=== PATIENT | female | born 2000 ===

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

== ENCOUNTER 2018-07-02 08:09 | Emergency (ER) | payer MEDICAID, OTHER ==
[2018-07-02 08:09] VITALS: BMI 25.8
[2018-07-02 08:31] VITALS: RESP 18
[2018-07-02] MEDS ORDERED: Sodium Chloride 0.9% 1,000 ML IV STA (08:45)
--- NOTE | 2018-07-02 08:49 | ED PDOC ---
Arrival/HPI - General Chief Complaint: Abdominal Pain Time Seen by Provider: 07/02/18 08:11 Historian: Patient - History of Present Illness Narrative History of Present Illness (Text): 07/02/18 08:48 18 year old female who denies any medical history issues, and who presents to the Emergency department for intermittent lower abdominal cramps since yesterday. Patient is primarily [place] speaking. She reports that her menstrual cycle started 6 days ago and and admits to vaginal bleeding which is consistent with menstrual cycle. She notes that she doesn't typically experience abdominal pain during her menstruation which is what prompted her presentation to the department. Patient states that her lower abdominal cramps occasionally feel like epigastric discomfort. She also admits to experiencing vomiting and has had 10 episodes of diarrhea. Had a fever around 2am this morning which was alleviated with Tylenol. Patient denies chills, cough, shortness of breath, chest pain, dyspnea on exertion, urinary symptoms, back pain, neck pain, headache, dizziness, or any other complaint. PMD: Patient doesn't currently have one. Time/Duration: 24 hours (since yesterday) Symptom Onset: Sudden Symptom Course: Unchanged Quality: Cramping Context: Home Past Medical History - Provider Review Nursing Documentation Reviewed: Yes - Past History Past History: No Previous - Infectious Disease Hx of Infectious Diseases: None - Tetanus Immunization Tetanus Immunization: Unknown - Past Medical History Past Medical History: No Previous - Psychiatric Hx Depression: No Hx Emotional Abuse: No Hx Physical Abuse: No Hx Substance Use: No - Past Surgical History Past Surgical History: No Previous - Anesthesia Hx Anesthesia: No Hx Anesthesia Reactions: No Hx Malignant Hyperthermia: No - Suicidal Assessment Feels Threatened In Home Enviroment: No Family/Social History - Physician Review Nursing Documentation Reviewed: Yes Family/Social History: No Known Family HX Smoking Status: Never Smoked Hx Alcohol Use: No Hx Substance Use: No Hx Substance Use Treatment: No Allergies/Home Meds Allergies/Adverse Reactions: Allergies decadron Allergy (Uncoded 01/02/17 23:51) RASH Review of Systems - Physician Review All systems were reviewed & negative as marked: Yes - Review of Systems Constitutional: Fevers. absent: Other (chills) Respiratory: absent: SOB, Cough Cardiovascular: absent: Chest Pain, JARRETT Gastrointestinal: Abdominal Pain, Diarrhea, Vomiting Genitourinary Female: absent: Urine Output Changes Musculoskeletal: absent: Back Pain, Neck Pain Neurological: absent: Headache, Dizziness Physical Exam Vital Signs Reviewed: Yes Vital Signs Temp Pulse Resp BP Pulse Ox 07/02/18 08:25 99.1 F 115 H 18 127/89 98 Temperature: Afebrile Blood Pressure: Normal Pulse: Tachycardic Respiratory Rate: Normal Appearance: Positive for: Well-Appearing Mental Status: Positive for: Alert and Oriented X 3 - Systems Exam Head: Present: Atraumatic, Normocephalic Pupils: Present: PERRL Extroacular Muscles: Present: EOMI Conjunctiva: Present: Normal Mouth: Present: Moist Mucous Membranes Neck: Present: Normal Range of Motion Respiratory/Chest: Present: Clear to Auscultation, Good Air Exchange. No: Respiratory Distress, Accessory Muscle Use Cardiovascular: Present: Regular Rate and Rhythm, Normal S1, S2. No: Murmurs Abdomen: No: Tenderness, Distention, Peritoneal Signs Genitourinary/Pelvic Exam: Present: Normal External Genitalia, Vaginal Bleeding (mild bleeding), Cervical os Closed. No: Vaginal Discharge, Vaginal Lesions, Adenexal Tenderness, Adenexal Mass, Cervical Motion Tendernes Back: Present: Normal Inspection Upper Extremity: Present: Normal Inspection. No: Cyanosis, Edema Lower Extremity: Present: Normal Inspection. No: Edema Neurological: Present: GCS=15, CN II-XII Intact, Speech Normal Skin: Present: Warm, Dry, Normal Color. No: Rashes Psychiatric: Present: Alert, Oriented x 3, Normal Insight, Normal Concentration Medical Decision Making ED Course and Treatment: 07/02/18 08:49 Impression: 18 year old female complaining of lower abdominal cramping and has experienced episodes of diarrhea since yesterday. Differential Diagnosis included but are not limited to: Gastroenteritis vs. menstrual cramps. Plan: -- Pepcid -- Zofran -- IV fluids -- Urine culture -- Reassess and disposition Prior Visits: Notes and results from previous visits were reviewed. Progress Notes: 07/02/18 11:32 Patient received meds in the ED and felt much better. She is able to walk with no lightheadedness or dizziness. On reexamination abdomen is non tender. Urine shows UTI and yeast. Will treat for both of those infection. Patient stable for discharge. - Lab Interpretations I have reviewed the lab results: Yes - Scribe Statement The provider has reviewed the documentation as recorded by the Alfonsoibe Franco Emir Provider Scribe Attestation: All medical record entries made by the Scribe were at my direction and personally dictated by me. I have reviewed the chart and agree that the record accurately reflects my personal performance of the history, physical exam, medical decision making, and the department course for this patient. I have also personally directed, reviewed, and agree with the discharge instructions and d isposition. Disposition/Present on Arrival - Present on Arrival Any Indicators Present on Arrival: No History of DVT/PE: No History of Uncontrolled Diabetes: No Urinary Catheter: No History of Decub. Ulcer: No History Surgical Site Infection Following: None - Disposition Have Diagnosis and Disposition been Completed?: Yes Diagnosis: Gastroenteritis, Menstrual cramps Disposition: HOME/ ROUTINE Disposition Time: 11:32 Condition: IMPROVED Discharge Instructions (ExitCare): Menstrual Cramps (DC), Gastroenteritis (ED) Additional Instructions: CLARISSE ESQUEDA, thank you for letting us take care of you today. Your provider was Atilio Mena DO and you were treated for Gastroenteritis, Menstral Cramps. The emergency medical care you received today was directed at your acute symptoms. If you were prescribed any medication, please fill it and take as directed. It may take several days for your symptoms to resolve. Return to the Emergency Department if your symptoms worsen, do not improve, or if you have any other problems. Please contact your doctor or call one of the physicians/clinics you have been referred to that are listed on the Patient Visit Information form that is included in your discharge packet. Bring any paperwork you were given at discharge with you along with any medications you are taking to your follow up visit. Our treatment cannot replace ongoing medical care by a primary care provider outside of the emergency department. Thank you for allowing the [facility] team to be part of your care today. If you had an X-Ray or CT scan: A Radiologist will review the ED reading if any change in treatment is needed we will contact you. If you had a blood, urine, or wound culture: It will take several days for the results, if any change in treatment is needed we will contact you. If you had an STI test: It will take 48 hours for the results. Please call after 1 week if you have not heard back. Prescriptions: Clotrimazole 1% Vaginal [Lotrimin 1% Vaginal] 1 applic VG 10 #1 tube Nitrofurantoin Macrocrystals [Macrobid] 100 mg PO BID #9 cap Referrals: [facility] [place] - Follow up with primary Tootie Ramos MD [Medical Doctor] - Follow up with primary Forms: [employer]: [employer] (Peruvian), WORK NOTE
[2018-07-02 09:33] LABS: URINE BILIRUBIN NEGATIVE (NEGATIVE); URINE BLOOD MODERATE (NEGATIVE); URINE GLUCOSE (UA) NEGATIVE (NEGATIVE); URINE LEUKOCYTE ESTERASE TRACE Leu/uL (NEGATIVE); URINE PROTEIN 30 mg/dL (<30 mg/dL); URINE UROBILINOGEN 0.2 E.U./dL (<1 E.U./dL)
[2018-07-02 09:36] LABS: URINE APPEARANCE CLEAR (CLEAR); URINE COLOR YELLOW (YELLOW)
[2018-07-02 09:37] LABS: BASO # 0.01 K/mm3 (0.0-2.0); BASO % 0.1 % (0.0-3.0); EOS % 0.1 % (1.5-5.0); GRAN # 9.03 (1.4-6.5); GRAN % 90.3 % (50.0-68.0); HEMOGLOBIN 14.9 g/dL (12.0-16.0); LYMPH # 0.6 (1.2-3.4); LYMPH % 6.2 % (22.0-35.0); MEAN CELL VOLUME 80.8 fl (80.0-105.0); MEAN CORPUSCULAR HGB CONC 33.5 g/dl (31.0-37.0); MEAN PLATELET VOLUME 9.7 fl (7.0-11.0); MONO # 0.3 (0.1-0.6); MONO % 3.3 % (1.0-6.0); PLATELET COUNT 293 10^3/uL (120.0-450.0); RBC 5.51 10^6/uL (3.5-6.1); RED CELL DISTRIBUTION WIDTH 14.9 % (11.5-14.5)
[2018-07-02 09:40] LABS: HCG,QUALITATIVE URINE NEGATIVE (NEGATIVE)
[2018-07-02 09:46] LABS: URINE RBC 15 - 20 /hpf (0-2)
[2018-07-02 09:47] LABS: URINE BACTERIA MANY (NEG)
[2018-07-02 09:47] LABS: ALB/GLOB RATIO 1.1 (1.1-1.8); ALBUMIN 4.5 g/dL (3.0-4.8); ALT/SGPT 25 U/L (7-56); AST/SGOT 24 U/L (14-36); BLOOD UREA NITROGEN 10 mg/dL (7-21); CALCIUM 9.5 mg/dL (8.4-10.5); GFR NON-AFRICAN AMERICAN > 60; LIPASE 36 U/L (23-300)
[2018-07-02 09:51] VITALS: TEMP 98.8; O2SAT 100
[2018-07-02 10:44] LABS: LYMPHOCYTE 5 % (22.0-35.0); MONOCYTE 4 % (1.0-6.0); NEUTROPHIL 91 % (50.0-70.0); PLATELET ESTIMATE NORMAL (NORMAL)
[2018-07-02 12:08] VITALS: BP 120/73; PULSE 89
== END 2018-07-02 12:08 | disposition home or self-care (01) ==
LOC: ED 08:09
DX: K52.9 Noninfective gastroenteritis and colitis, unspecified (principal); N94.6 Dysmenorrhea, unspecified
CPT/HCPCS: 80053; 81001; 83690; 83735; 84703; 85025; 87086; 87181; 96374; 96375; 99284; J2405; J7030

== ENCOUNTER 2018-11-29 22:29 | Emergency (ER) | payer OTHER ==
[2018-11-29 22:29] VITALS: BMI 25.8
[2018-11-29] MEDS ORDERED: Sodium Chloride 0.9% 1,000 ML IV STA (22:35)
[2018-11-29] MEDS ORDERED: DiphenhydrAMINE 50 mg/ml Inj IVP STA (22:35)
[2018-11-29] MEDS ORDERED: EPINEPHrine 1 mg/ml (1:1000) Inj ONE (22:36)
[2018-11-29] MEDS ORDERED: EPINEPHrine 1 mg/ml (1:1000) Inj IM STA (22:36)
--- NOTE | 2018-11-29 22:47 | ED PDOC ---
Arrival/HPI - General Chief Complaint: Allergic Reaction Time Seen by Provider: 11/29/18 22:43 Historian: Patient - History of Present Illness Narrative History of Present Illness (Text): 11/29/18 22:44 18 year old female, with no significant past medical history, presents to the emergency department with allergic reaction. Patient states she ate crab and immediately began having hives. Patient states she felt her throat c losing. Patient states she feels itchy all over. Patient denies taking any medication before arrival. Patient states she has a known seafood allergy. Patient denies any fevers, chills, headache, dizziness, chest pain, abdominal pain, nausea, vomiting, diarrhea, back pain, neck pain, or any other complaint. Time/Duration: Prior to Arrival Symptom Onset: Gradual Symptom Course: Unchanged Activities at Onset: Eating Past Medical History - Provider Review Nursing Documentation Reviewed: Yes - Past History Past History: No Previous - Infectious Disease Hx of Infectious Diseases: None - Tetanus Immunization Tetanus Immunization: Unknown - Past Medical History Past Medical History: No Previous - Psychiatric Hx Depression: No Hx Emotional Abuse: No Hx Physical Abuse: No Hx Substance Use: No - Past Surgical History Past Surgical History: No Previous - Anesthesia Hx Anesthesia: No Hx Anesthesia Reactions: No Hx Malignant Hyperthermia: No - Suicidal Assessment Feels Threatened In Home Enviroment: No Family/Social History - Physician Review Nursing Documentation Reviewed: Yes Family/Social History: No Known Family HX Smoking Status: Never Smoked Hx Alcohol Use: No Hx Substance Use: No Hx Substance Use Treatment: No Allergies/Home Meds Allergies/Adverse Reactions: Allergies crab Allergy (Verified 11/29/18 22:35) ANAPHYLAXIS decadron Allergy (Uncoded 01/02/17 23:51) RASH Review of Systems - Physician Review All systems were reviewed & negative as marked: Yes - Review of Systems Constitutional: absent: Fevers, Night Sweats Respiratory: SOB Cardiovascular: absent: Chest Pain Gastrointestinal: absent: Abdominal Pain, Diarrhea, Nausea, Vomiting Musculoskeletal: absent: Back Pain, Neck Pain Skin: Rash Neurological: absent: Headache, Dizziness Physical Exam Vital Signs Reviewed: Yes Blood Pressure: Normal Pulse: Tachycardic Respiratory Rate: Tachypneic Appearance: Positive for: Well-Appearing, Non-Toxic, Comfortable Pain Distress: None Mental Status: Positive for: Alert and Oriented X 3 - Systems Exam Head: Present: Atraumatic, Normocephalic Pupils: Present: PERRL Extroacular Muscles: Present: EOMI Conjunctiva: Present: Normal Mouth: Present: Moist Mucous Membranes Neck: Present: Normal Range of Motion Respiratory/Chest: Present: Clear to Auscultation, Good Air Exchange, Wheezes. No: Respiratory Distress, Accessory Muscle Use Cardiovascular: Present: Normal S1, S2, Tachycardic (Slightly). No: Murmurs Abdomen: No: Tenderness, Distention, Peritoneal Signs Back: Present: Normal Inspection Upper Extremity: Present: Normal Inspection. No: Cyanosis, Edema Lower Extremity: Present: Normal Inspection. No: Edema Neurological: Present: GCS=15, CN II-XII Intact, Speech Normal Skin: Present: Warm, Dry, Rashes (blanching urticarial lesions on her upper extremity, face, and neck), Normal Color, Other (lucille-oral and lucille-orbital swelling) Psychiatric: Present: Alert, Oriented x 3, Normal Insight, Normal Concentration Medical Decision Making ED Course and Treatment: 11/29/18 22:57 Impression: 18 year old female presents with allergic reaction Plan: -- Benadryl -- Epinephrine -- Pepcid -- Solumedrol -- Reassess and disposition Prior Visits: Notes and results from previous visits were reviewed. Progress Notes: 11/30/18 00:21 Patient reevaluated and feels much better. Urticarial rash noted to diminish in size on upper extremities as well as decrease in appearance of periorbital swelling. Patient strongly advised to avoid all shellfish to prevent future reactions in future. Opportunity for questions given and answered. Scripts provided. She is stable for discharge. - Medication Orders Current Medication Orders: Sodium Chloride (Sodium Chloride 0.9%) 1,000 mls @ 999 mls/hr IV .Q1H1M STA Stop: 11/29/18 23:35 Discontinued Medications Diphenhydramine HCl (Benadryl) 50 mg IVP STAT STA Stop: 11/29/18 22:36 Epinephrine HCl (Epinephrine) 0.3 mg IM STAT STA Stop: 11/29/18 22:37 Famotidine (Pepcid) 20 mg IVP STAT STA Stop: 11/29/18 22:36 Methylprednisolone (Solu-Medrol) 125 mg IVP STAT STA Stop: 11/29/18 22:36 - Scribe Statement The provider has reviewed the documentation as recorded by the Alfonsoibrocio Miller Provider Scribe Attestation: All medical record entries made by the Scribe were at my direction and personally dictated by me. I have reviewed the chart and agree that the record accurately reflects my personal performance of the history, physical exam, medical decision making, and the department course for this patient. I have also personally directed, reviewed, and agree with the discharge instructions and disposition. Disposition/Present on Arrival - Present on Arrival Any Indicators Present on Arrival: No History of DVT/PE: No History of Uncontrolled Diabetes: No Urinary Catheter: No History of Decub. Ulcer: No History Surgical Site Infection Following: None - Disposition Have Diagnosis and Disposition been Completed?: Yes Diagnosis: Allergic reaction to food Disposition: HOME/ ROUTINE Disposition Time: 00:24 Patient Plan: Discharge Condition: IMPROVED Discharge Instructions (ExitCare): Anaphylaxis (DC), Allergy to Shellfish Print Language: MONGOLIAN Additional Instructions: All medical record entries made by the Scribe were at my direction and personally dictated by me. I have reviewed the chart and agree that the record accurately reflects my personal performance of the history, physical exam, medical decision making, and the department course for this patient. I have also personally directed, reviewed, and agree with the discharge instructions and disposition. Please take medications as prescribed Please try to schedule an appointment with an director of convention services Prescriptions: DiphenhydrAMINE [Benadryl] 50 mg PO Q6H #12 cap Epinephrine HCl [Epipen Auto-Injector] 0.3 mg MR ONCE #2 ml Famotidine [Pepcid] 40 mg PO Q6H #10 tablet Methylprednisolone [Medrol Dose Pack (21 tabs)] 4 mg PO DAILY #21 mg Referrals: Corinne Sheppard MD [Primary Care Provider] - Follow up with primary Dutch Ragsdale MD [Medical Doctor] - Follow up with primary Forms: [employer] (Romanian)
[2018-11-30 00:36] VITALS: BP 126/82; PULSE 95; RESP 17; TEMP 98.2; O2SAT 98
== END 2018-11-30 00:36 | disposition home or self-care (01) ==
LOC: ED 22:29
DX: T78.1XXA Other adverse food reactions, not elsewhere classified, initial encounter (principal); X58.XXXA Exposure to other specified factors, initial encounter
CPT/HCPCS: 96361; 96372; 96374; 96375; 99284; J0171; J1200; J2930; J7030